=== PATIENT | male | born 2000 | race Caucasian/White ===

== ENCOUNTER 2022-11-29 12:07 | Outpatient (CLI) | payer OTHER ==
[~2022-11-29] VITALS: Ht 185.4 cm; Wt 68.2 kg
[2022-11-29 13:23] VITALS: BP 121/63; O2SAT 100
[2022-11-29] MEDS ORDERED: dexameTHASONE 20 MG IV PRIOR TO INFUSION IV ONE (13:30)
[2022-11-29] MEDS ORDERED: NS 1,000 ML IV SCH (13:30)
[2022-11-29] MEDS ORDERED: diphenhydrAMINE 25MG IV PRIOR TO INFUSION IV ONE (13:30)
[2022-11-29] MEDS ORDERED: INFLIXIMAB BIOSIMILAR 300 MG in NS 220 ML IV ONE (13:30)
[2022-11-29] MEDS ORDERED: ACETAMINOPHEN 650MG PO PRIOR TO INFUSION PO ONE (13:30)
[2022-11-29 14:00] VITALS: BP 124/58; TEMP 98; O2SAT 99
[2022-11-29 15:45] VITALS: BP 119/68; O2SAT 100
== END 2022-11-29 15:45 ==
LOC: M INFU 12:07
PROVIDERS: ATTEND Internal Medicine Gastroenterology
DX: K51.90 Ulcerative colitis, unspecified, without complications (principal)
CPT/HCPCS: 96375; 96413; J1100; J1200; Q5103

== ENCOUNTER 2022-12-27 14:30 | Outpatient (CLI) | payer OTHER ==
[~2022-12-27] VITALS: Ht 188 cm; Wt 61.5 kg
[2022-12-27 14:30] VITALS: BP 124/57; TEMP 98.4; O2SAT 97
[~2022-12-27 14:30] MED LIST: ACETAMINOPHEN 650MG PO PRIOR TO INFUSION PO ONE; INFLIXIMAB BIOSIMILAR 300 MG in NS 220 ML IV ONE; NS 1,000 ML IV SCH; dexameTHASONE 20 MG IV PRIOR TO INFUSION IV ONE; diphenhydrAMINE 25MG IV PRIOR TO INFUSION IV ONE
[2022-12-27] MEDS ORDERED: dexameTHASONE 20 MG IV PRIOR TO INFUSION IV ONE ×2 (14:45→15:30)
[2022-12-27] MEDS ORDERED: NS 1,000 ML IV SCH ×2 (14:45→15:30)
[2022-12-27] MEDS ORDERED: INFLIXIMAB BIOSIMILAR 300 MG in NS 220 ML IV ONE ×2 (14:45→15:30)
[2022-12-27] MEDS ORDERED: diphenhydrAMINE 25MG IV PRIOR TO INFUSION IV ONE ×2 (14:45→15:30)
[2022-12-27] MEDS ORDERED: ACETAMINOPHEN 650MG PO PRIOR TO INFUSION PO ONE ×2 (14:45→15:30)
[2022-12-27 16:45] VITALS: BP 104/57; O2SAT 99
[2022-12-27 17:14] VITALS: BP 99/51; O2SAT 98
[2022-12-27 17:30] VITALS: BP 91/51; O2SAT 100
[2022-12-27 18:00] VITALS: BP 117/61; O2SAT 99
[2022-12-27 18:35] VITALS: BP 124/58; O2SAT 98
== END 2022-12-27 18:35 | disposition home or self-care (01) ==
LOC: M INFU 14:30
PROVIDERS: ATTEND Internal Medicine Gastroenterology
DX: K51.90 Ulcerative colitis, unspecified, without complications (principal)
CPT/HCPCS: 96375; 96413; 96415; J1100; J1200; Q5103

== ENCOUNTER 2023-03-07 13:25 | Outpatient (CLI) | payer OTHER ==
[~2023-03-07] VITALS: Ht 188 cm; Wt 62.0 kg
[2023-03-07] MEDS ORDERED: dexameTHASONE 20 MG IV PRIOR TO INFUSION IV ONE (13:30)
[2023-03-07] MEDS ORDERED: diphenhydrAMINE 25MG IV PRIOR TO INFUSION IV ONE (13:30)
[2023-03-07] MEDS ORDERED: ACETAMINOPHEN 650MG PO PRIOR TO INFUSION PO ONE (13:30)
[2023-03-07] MEDS ORDERED: NS 1,000 ML IV SCH (13:30)
[2023-03-07 13:35] VITALS: BP 128/60; O2SAT 100
[2023-03-07] MEDS ORDERED: INFLIXIMAB BIOSIMILAR 300 MG in NS 220 ML IV ONE (14:00)
[2023-03-07 14:30] VITALS: BP 109/53; TEMP 98.6; O2SAT 100
[2023-03-07 14:45] VITALS: BP 104/51; TEMP 97.6; O2SAT 98
[2023-03-07 16:15] VITALS: BP 118/58; O2SAT 100
== END 2023-03-07 16:18 ==
LOC: M INFU 13:25 → EDUNIT# 13:30 → M INFU 16:18
PROVIDERS: ATTEND Internal Medicine Gastroenterology
DX: K51.90 Ulcerative colitis, unspecified, without complications (principal)
CPT/HCPCS: 96375; 96413; 96415; J1100; J1200; Q5103

== ENCOUNTER 2023-05-02 12:30 | Outpatient (CLI) | payer OTHER ==
[~2023-05-02] VITALS: Ht 188 cm; Wt 67.6 kg
[2023-05-02] MEDS ORDERED: INFLIXIMAB BIOSIMILAR 600 MG in NS 190 ML IV ONE (13:30)
[2023-05-02] MEDS ORDERED: ACETAMINOPHEN 650MG PO PRIOR TO INFUSION PO ONE (13:30)
[2023-05-02] MEDS ORDERED: dexameTHASONE 20 MG IV PRIOR TO INFUSION IV ONE (13:30)
[2023-05-02] MEDS ORDERED: NS 1,000 ML IV SCH (13:30)
[2023-05-02] MEDS ORDERED: diphenhydrAMINE 25MG IV PRIOR TO INFUSION IV ONE (13:30)
[2023-05-02 13:40] VITALS: BP 126/59; O2SAT 98
[2023-05-02 16:00] VITALS: BP 124/57; O2SAT 100
== END 2023-05-02 16:00 | disposition home or self-care (01) ==
LOC: M INFU 12:30 → EDUNIT# 13:30 → M INFU 16:00
PROVIDERS: ATTEND Internal Medicine Gastroenterology
DX: K51.90 Ulcerative colitis, unspecified, without complications (principal)
CPT/HCPCS: 96375; 96413; J1100; J1200; Q5103

== ENCOUNTER 2023-06-27 13:45 | Outpatient (CLI) | payer OTHER ==
[~2023-06-27] VITALS: Ht 188 cm; Wt 66.3 kg
[2023-06-27] MEDS: dexameTHASONE 20 MG IV PRIOR TO INFUSION IV ONE (13:30)
[2023-06-27] MEDS: NS 1,000 ML IV SCH (13:30)
[2023-06-27] MEDS: diphenhydrAMINE 25MG IV PRIOR TO INFUSION IV ONE (13:30)
[2023-06-27] MEDS: ACETAMINOPHEN 650MG PO PRIOR TO INFUSION PO ONE (13:30)
[2023-06-27 14:04] VITALS: BP 134/60; TEMP 97.8; O2SAT 100
[2023-06-27] MEDS: INFLIXIMAB BIOSIMILAR 700 MG in NS 180 ML IV ONE (14:15)
[2023-06-27 15:15] VITALS: BP 115/55; O2SAT 100
== END 2023-06-27 15:30 | disposition home or self-care (01) ==
LOC: M INFU 13:45
PROVIDERS: ATTEND Internal Medicine Gastroenterology
DX: K51.90 Ulcerative colitis, unspecified, without complications (principal)
CPT/HCPCS: 96413; Q5103

== ENCOUNTER 2023-08-22 13:00 | Outpatient (CLI) | payer OTHER ==
[~2023-08-22] VITALS: Ht 188 cm; Wt 70.3 kg
[2023-08-22 13:11] VITALS: BP 135/61; O2SAT 100
[2023-08-22] MEDS ORDERED: diphenhydrAMINE 25MG IV PRIOR TO INFUSION IV ONE (13:30)
[2023-08-22] MEDS ORDERED: dexameTHASONE 20 MG IV PRIOR TO INFUSION IV ONE (13:30)
[2023-08-22] MEDS ORDERED: ACETAMINOPHEN 650MG PO PRIOR TO INFUSION PO ONE (13:30)
[2023-08-22] MEDS ORDERED: NS 1,000 ML IV SCH (13:30)
[2023-08-22] MEDS: INFLIXIMAB BIOSIMILAR 700 MG in NS 180 ML IV ONE (13:34)
[2023-08-22 14:33] VITALS: BP 130/72; O2SAT 96
== END 2023-08-22 14:33 | disposition home or self-care (01) ==
LOC: M INFU 13:00
PROVIDERS: ATTEND Internal Medicine Gastroenterology
DX: K51.90 Ulcerative colitis, unspecified, without complications (principal)
CPT/HCPCS: 96413; Q5103

== ENCOUNTER 2023-10-20 13:24 | Outpatient (CLI) | payer OTHER ==
[~2023-10-20] VITALS: Ht 188 cm; Wt 68.1 kg
[2023-10-20 13:40] VITALS: BP 141/58; TEMP 98.9; O2SAT 98
[2023-10-20] MEDS ORDERED: dexameTHASONE 20 MG IV PRIOR TO INFUSION IV ONE (14:00)
[2023-10-20] MEDS ORDERED: ACETAMINOPHEN 650MG PO PRIOR TO INFUSION PO ONE (14:00)
[2023-10-20] MEDS ORDERED: NS 1,000 ML IV SCH (14:00)
[2023-10-20] MEDS ORDERED: diphenhydrAMINE 25MG IV PRIOR TO INFUSION IV ONE (14:00)
[2023-10-20] MEDS: INFLIXIMAB BIOSIMILAR 700 MG in NS 180 ML IV ONE (14:06)
[2023-10-20 15:10] VITALS: BP 123/56; O2SAT 100
== END 2023-10-20 15:10 ==
LOC: M INFU 13:24
PROVIDERS: ATTEND Internal Medicine Gastroenterology
DX: K51.90 Ulcerative colitis, unspecified, without complications (principal)
CPT/HCPCS: 96413; Q5103

== ENCOUNTER 2023-12-15 11:35 | Outpatient (CLI) | payer OTHER ==
[~2023-12-15] VITALS: Ht 188 cm; Wt 70.5 kg
[2023-12-15 11:35] VITALS: BP 141/64; O2SAT 97
[~2023-12-15 11:35] MED LIST changes: -ACETAMINOPHEN 650MG PO PRIOR TO INFUSION PO ONE; -INFLIXIMAB BIOSIMILAR 300 MG in NS 220 ML IV ONE; -dexameTHASONE 20 MG IV PRIOR TO INFUSION IV ONE; -diphenhydrAMINE 25MG IV PRIOR TO INFUSION IV ONE
[2023-12-15] MEDS: diphenhydrAMINE 25MG IV PRIOR TO INFUSION IV ONE (12:01)
[2023-12-15] MEDS: ACETAMINOPHEN 650MG PO PRIOR TO INFUSION PO ONE (12:01)
[2023-12-15] MEDS: dexameTHASONE 20 MG IV PRIOR TO INFUSION IV ONE (12:03)
[2023-12-15] MEDS: INFLIXIMAB BIOSIMILAR 700 MG in NS 180 ML IV ONE (13:09)
[2023-12-15 14:15] VITALS: BP 122/61; O2SAT 100
== END 2023-12-15 14:15 ==
LOC: M INFU 11:35
PROVIDERS: ATTEND Internal Medicine Gastroenterology
DX: K51.90 Ulcerative colitis, unspecified, without complications (principal)
CPT/HCPCS: 96413; Q5103

== ENCOUNTER 2024-02-09 12:05 | Outpatient (CLI) | payer OTHER ==
[~2024-02-09] VITALS: Ht 188 cm; Wt 72.7 kg
[2024-02-09 12:05] VITALS: BP 135/62; O2SAT 100
[2024-02-09] MEDS: dexameTHASONE 20 MG IV PRIOR TO INFUSION IV ONE (12:25)
[2024-02-09] MEDS: ACETAMINOPHEN 650MG PO PRIOR TO INFUSION PO ONE (12:26)
[2024-02-09] MEDS: diphenhydrAMINE 25MG IV PRIOR TO INFUSION IV ONE (12:26)
[2024-02-09] MEDS: INFLIXIMAB BIOSIMILAR 700 MG in NS 180 ML IV ONE (12:48)
[2024-02-09 13:20] VITALS: BP 111/57; O2SAT 99
[2024-02-09 13:50] VITALS: BP 134/60; O2SAT 99
== END 2024-02-09 14:00 ==
LOC: M INFU 12:05
PROVIDERS: ATTEND Internal Medicine Gastroenterology
DX: K51.90 Ulcerative colitis, unspecified, without complications (principal)
CPT/HCPCS: 96367; 96413; J1100; Q5103

== ENCOUNTER 2024-04-05 11:40 | Outpatient (CLI) | payer OTHER ==
[~2024-04-05] VITALS: Ht 188 cm; Wt 75.9 kg
[2024-04-05 12:15] VITALS: BP 156/70; O2SAT 100
[2024-04-05] MEDS: diphenhydrAMINE 25MG IV PRIOR TO INFUSION IV ONE (12:30)
[2024-04-05] MEDS: ACETAMINOPHEN 650MG PO PRIOR TO INFUSION PO ONE (12:30)
[2024-04-05] MEDS ORDERED: NS (Normal Saline) 0.9% 1,000 ML IV SCH (12:30)
[2024-04-05] MEDS: dexameTHASONE 20 MG IV PRIOR TO INFUSION IV ONE (12:31)
[2024-04-05] MEDS: INFLIXIMAB BIOSIMILAR 700 MG in NS 180 ML IV ONE (12:50)
[2024-04-05 14:50] VITALS: BP 118/56; TEMP 36.8; O2SAT 98
== END 2024-04-05 14:50 ==
LOC: M INFU 11:40
PROVIDERS: ATTEND Internal Medicine Gastroenterology
DX: K51.90 Ulcerative colitis, unspecified, without complications (principal)
CPT/HCPCS: 96375; 96413; 96415; J1200; Q5103

== ENCOUNTER 2024-05-31 11:51 | Outpatient (CLI) | payer OTHER ==
[~2024-05-31] VITALS: Ht 188 cm; Wt 72.7 kg
[2024-05-31 11:55] VITALS: BP 131/71; O2SAT 99
[2024-05-31] MEDS ORDERED: dexameTHASONE 20 MG IV PRIOR TO INFUSION IV ONE (12:30)
[2024-05-31] MEDS ORDERED: diphenhydrAMINE 25MG IV PRIOR TO INFUSION IV ONE (12:30)
[2024-05-31] MEDS ORDERED: NS (Normal Saline) 0.9% 1,000 ML IV SCH (12:30)
[2024-05-31] MEDS ORDERED: ACETAMINOPHEN 650MG PO PRIOR TO INFUSION PO ONE (12:30)
[2024-05-31] MEDS: INFLIXIMAB BIOSIMILAR 700 MG in NS 180 ML IV ONE (12:42)
[2024-05-31 12:59] VITALS: BP 124/63; O2SAT 100
[2024-05-31 13:43] VITALS: BP 138/66; O2SAT 100
== END 2024-05-31 13:45 ==
LOC: M INFU 11:51
PROVIDERS: ATTEND Internal Medicine Gastroenterology
DX: K51.90 Ulcerative colitis, unspecified, without complications (principal)
CPT/HCPCS: 96413; Q5103

== ENCOUNTER 2024-06-28 07:23 | Outpatient (CLI) | payer OTHER ==
[~2024-06-28] VITALS: Ht 188 cm; Wt 72.8 kg
[2024-06-28] MEDS ORDERED: NS (Normal Saline) 0.9% 1,000 ML IV SCH (07:30)
[2024-06-28 07:50] VITALS: BP 132/69; TEMP 97.3; O2SAT 97
[2024-06-28] MEDS: INFLIXIMAB BIOSIMILAR 800 MG in NS 170 ML IV ONE (08:07)
[2024-06-28 08:25] VITALS: BP 114/69; O2SAT 98
[2024-06-28 09:05] VITALS: BP 136/64; O2SAT 100
== END 2024-06-28 09:18 ==
LOC: M INFU 07:23
PROVIDERS: ATTEND Internal Medicine Gastroenterology
DX: K51.90 Ulcerative colitis, unspecified, without complications (principal)
CPT/HCPCS: 96413; Q5103

== ENCOUNTER 2024-07-26 12:10 | Outpatient (CLI) | payer OTHER ==
[~2024-07-26] VITALS: Ht 188 cm; Wt 76.1 kg
[~2024-07-26 12:10] MED LIST changes: +ALBUTEROL SULFATE 2.5MG/0.5ML INH CONCENTRATE NEB SOLN INH PRN; +EPINEPHrine INJ 1 MG/ML 1ML AMP IM PRN; -NS 1,000 ML IV SCH; +diphenhydrAMINE 50MG/ML VIAL IV PRN; +methylPREDNISolone 125MG 2ML VIAL IV PRN
[2024-07-26] MEDS ORDERED: NS (Normal Saline) 0.9% 1,000 ML IV SCH (12:30)
[2024-07-26] MEDS: INFLIXIMAB BIOSIMILAR 800 MG in NS 170 ML IV ONE (13:09)
[2024-07-26 13:40] VITALS: BP 131/60; O2SAT 100
[2024-07-26 14:20] VITALS: BP 138/76; O2SAT 100
== END 2024-07-26 14:20 ==
LOC: M INFU 12:10
PROVIDERS: ATTEND Internal Medicine Gastroenterology
DX: K51.90 Ulcerative colitis, unspecified, without complications (principal)
CPT/HCPCS: 96413; Q5103

== ENCOUNTER 2024-08-23 13:28 | Outpatient (CLI) | payer OTHER ==
[~2024-08-23] VITALS: Ht 188 cm; Wt 74.5 kg
[2024-08-23 13:50] VITALS: BP 131/77; O2SAT 99
[2024-08-23] MEDS ORDERED: NS (Normal Saline) 0.9% 1,000 ML IV SCH (14:00)
[2024-08-23] MEDS: INFLIXIMAB BIOSIMILAR 800 MG in NS 170 ML IV ONE (14:44)
[2024-08-23 15:57] VITALS: BP 137/77; O2SAT 99
== END 2024-08-23 15:55 ==
LOC: M INFU 13:28
PROVIDERS: ATTEND Internal Medicine Gastroenterology
DX: K51.90 Ulcerative colitis, unspecified, without complications (principal)
CPT/HCPCS: 96365; Q5103

== ENCOUNTER 2024-10-21 13:23 | Outpatient (CLI) | payer OTHER ==
[~2024-10-21] VITALS: Ht 188 cm; Wt 77.3 kg
[2024-10-21] MEDS ORDERED: NS (Normal Saline) 0.9% 1,000 ML IV SCH (14:00)
[2024-10-21 14:03] VITALS: BP_SYST 83; O2SAT 97
[2024-10-21] MEDS: INFLIXIMAB BIOSIMILAR 800 MG in NS 170 ML IV ONE (14:59)
[2024-10-21 16:00] VITALS: BP 130/68; O2SAT 100
== END 2024-10-21 16:03 ==
LOC: M INFU 13:23
PROVIDERS: ATTEND Internal Medicine Gastroenterology
DX: K51.90 Ulcerative colitis, unspecified, without complications (principal)
CPT/HCPCS: 96413; Q5103

== ENCOUNTER 2024-12-19 10:33 | Outpatient (CLI) | payer OTHER ==
[~2024-12-19] VITALS: Ht 188 cm; Wt 80.5 kg
[2024-12-19 13:10] VITALS: BP 132/68; O2SAT 96
[2024-12-19] MEDS ORDERED: NS (Normal Saline) 0.9% 1,000 ML IV SCH (13:30)
[2024-12-19] MEDS: INFLIXIMAB BIOSIMILAR 800 MG in NS 170 ML IV ONE (14:03)
[2024-12-19 15:20] VITALS: BP 131/68; O2SAT 100
== END 2024-12-19 13:30 ==
LOC: M INFU 10:33
PROVIDERS: ATTEND Internal Medicine Gastroenterology
DX: K51.90 Ulcerative colitis, unspecified, without complications (principal)
CPT/HCPCS: 96413; Q5103

== ENCOUNTER → 2025-01-16 | Outpatient (CLI) | payer OTHER ==
[~2025-01-16] VITALS: Ht 188 cm; Wt 81.6 kg
[~2025-01-16] MED LIST changes: -ALBUTEROL SULFATE 2.5MG/0.5ML INH CONCENTRATE NEB SOLN INH PRN; -EPINEPHrine INJ 1 MG/ML 1ML AMP IM PRN; +NS (Normal Saline) 0.9% 1,000 ML IV SCH; -diphenhydrAMINE 50MG/ML VIAL IV PRN; -methylPREDNISolone 125MG 2ML VIAL IV PRN
[2025-01-16] MEDS: INFLIXIMAB BIOSIMILAR 800 MG in NS 170 ML IV ONE (13:56)
[2025-01-16 15:02] VITALS: BP 123/80; O2SAT 100
== END ==
LOC: M INFU 12:48
PROVIDERS: ATTEND Internal Medicine Gastroenterology
DX: K51.90 Ulcerative colitis, unspecified, without complications (principal)
CPT/HCPCS: 96413; Q5103

== ENCOUNTER 2025-02-13 12:43 | Outpatient (CLI) | payer OTHER ==
[~2025-02-13] VITALS: Ht 188 cm; Wt 79.5 kg
[2025-02-13] MEDS ORDERED: NS (Normal Saline) 0.9% 1,000 ML IV SCH (13:30)
[2025-02-13 13:31] VITALS: BP 139/69; TEMP 97.3; O2SAT 99
[2025-02-13] MEDS: INFLIXIMAB BIOSIMILAR 800 MG in NS 170 ML IV ONE (14:01)
[2025-02-13 14:20] VITALS: BP 140/66; TEMP 98; O2SAT 98
[2025-02-13 15:05] VITALS: BP 136/78; O2SAT 100
== END 2025-02-13 15:15 ==
LOC: M INFU 12:43
PROVIDERS: ATTEND Internal Medicine Gastroenterology
DX: K51.90 Ulcerative colitis, unspecified, without complications (principal)
CPT/HCPCS: 96413; Q5103

== ENCOUNTER 2025-03-17 13:03 | Outpatient (CLI) | payer OTHER ==
[~2025-03-17] VITALS: Ht 188 cm; Wt 89.0 kg
[2025-03-17 13:15] VITALS: BP 158/77; O2SAT 100
[2025-03-17] MEDS ORDERED: NS (Normal Saline) 0.9% 1,000 ML IV SCH (13:30)
[2025-03-17] MEDS: INFLIXIMAB BIOSIMILAR 800 MG in NS 170 ML IV ONE (13:50)
[2025-03-17 14:55] VITALS: BP 136/79; O2SAT 100
== END 2025-03-17 14:55 | disposition home or self-care (01) ==
LOC: M INFU 13:03
PROVIDERS: ATTEND Internal Medicine Gastroenterology
DX: K51.90 Ulcerative colitis, unspecified, without complications (principal)
CPT/HCPCS: 96413; Q5103

== ENCOUNTER 2025-04-14 13:15 | Outpatient (CLI) | payer OTHER ==
[~2025-04-14] VITALS: Ht 188 cm; Wt 81.8 kg
[2025-04-14] MEDS ORDERED: NS (Normal Saline) 0.9% 1,000 ML IV SCH (13:30)
[2025-04-14] MEDS: INFLIXIMAB BIOSIMILAR 800 MG in NS 170 ML IV ONE (14:06)
[2025-04-14 15:10] VITALS: BP 124/60; O2SAT 99
== END 2025-04-14 15:10 ==
LOC: M INFU 13:15
PROVIDERS: ATTEND Internal Medicine Gastroenterology
DX: K51.90 Ulcerative colitis, unspecified, without complications (principal)
CPT/HCPCS: 96413; Q5103